=== PATIENT | male | born 1975 | race Two or more races ===

== ENCOUNTER 2024-11-04 19:54 | Emergency (ER) | payer OTHER, MEDICAID ==
[~2024-11-04] VITALS: Ht 162.6 cm; Wt 74.5 kg
[2024-11-04 20:01] VITALS: BP 128/82; PULSE 87; RESP 18; TEMP 98.8; O2SAT 96
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
== END 2024-11-04 20:50 | disposition left against medical advice (07) ==
LOC: ER 19:54 → EDBD 19:54 → ER 20:50
DX: M54.2 Cervicalgia (principal); R10.9 Unspecified abdominal pain; M25.512 Pain in left shoulder; R07.89 Other chest pain; V43.52XA Car driver injured in collision with other type car in traffic accident, initial encounter; Y93.I9 Activity, other involving external motion; Y92.488 Other paved roadways as the place of occurrence of the external cause; Y99.8 Other external cause status